=== PATIENT | male | born 2000 | race African-American/Black ===

== ENCOUNTER 2023-10-21 07:34 | Emergency (ER) | payer OTHER ==
[~2023-10-21] VITALS: Ht 175.3 cm; Wt 77.1 kg
[2023-10-21 11:35] VITALS: BP 133/79; TEMP 96.9; O2SAT 99
== END 2023-10-21 11:35 | disposition home or self-care (01) ==
LOC: M ED 07:34
DX: H60.01 Abscess of right external ear (principal); K11.20 Sialoadenitis, unspecified